=== PATIENT | male | born 1995 | race Caucasian/White ===

== ENCOUNTER 2021-11-02 15:54 | Inpatient (IN) | payer MEDICAID ==
[2021-11-02] MEDS ORDERED: MAGNESIUM HYDROXIDE 2,400 MG/10 ML CUP PO PRN (17:55)
[2021-11-02] MEDS ORDERED: HALOPERIDOL LACTATE 5 MG/ML 1 ML VIAL IM PRN (17:55)
[2021-11-02] MEDS ORDERED: MAG HYDROX/AL HYDROX/SIMETH 30 ML CUP PO PRN (17:55)
[2021-11-02] MEDS ORDERED: LORazepam 2 MG/ML INJ IM PRN (17:57)
[2021-11-02] MEDS: lisinopriL 20 MG TAB PO SCH (20:13)
[2021-11-02] MEDS: NICOTINE 14MG/24HR PATCH TRANSDERM SCH (20:13)
[2021-11-02] MEDS: LORazepam 1 MG TAB PO PRN (20:55)
[2021-11-02] MEDS: haloperidoL 5 MG TAB PO PRN (20:55)
[2021-11-03] MEDS: NICOTINE 14MG/24HR PATCH TRANSDERM SCH (09:07)
[2021-11-03] MEDS: lisinopriL 20 MG TAB PO SCH (09:08)
--- NOTE | 2021-11-03 11:32 | P.HP ---
Psychiatric H&P - . H&P Date: 11/03/21 History & Physical: Allergies Allergy/AdvReac Type Severity Reaction Status Date / Time No Known Allergies Allergy Verified 11/02/21 17:47 Vital Signs Temp 97.3 F L 11/02/21 17:47 Pulse 75 11/02/21 17:47 Resp 20 11/02/21 17:47 BP 144/78 11/02/21 17:47 Pulse Ox Intake & Output 11/02/21 11/03/21 11/03/21 18:59 06:59 18:59 Weight 109.769 kg 11/03/21 11:26 IDENTIFYING DATA: Patient is a 26-year-old male who is currently homeless living in a skilled nursing has wanted, works at a factory. HPI: Patient presented to the hospital as a transfer from [facility]. According to APS report, patient had overdosed on 13 tablets of Zoloft before coming into the hospital. Patient had endorsed a recent trigger for this event being that he found out that his aunt recently. Patient's UDS was negative. Patient was admitted involuntarily on a petition and certificate. Patient was seen today living in his bed and agreeable to speak to television script writer in the office. He appeared to have poor hygiene and grooming. He also appeared to have a depressed affect. He states that he came in the hospital because he overdosed. He states that his intent was to kill himself. He claims that his aunt and him were very close and that she 2 days ago. He states that she succumbed to her cancer. He states that her daughter informed him of this and the overdose shortly after. He states that "I wanted to be gone". He claims that about an after after overdosing he told his girlfriend that he overdosed and regretted it. He claims that his mood is been "fine" and is denying any depression today. Denying any anxiety. He states that his sleep has been fairly poor. He claims that he has been taking the Zoloft and trazodone. Patient denies any current suicidal or homicidal ideations intent or plan. At this time patient denies any auditory or visual hallucinations. Patient denies any flight of ideas racing thoughts and increased in goal directed behavior. Patient admits to using no recreational drugs or cigarettes. PAST PSYCHIATRIC HISTORY: Patient states that she has a history of depression.. Patient was previously on Zoloft and trazodone. He claimed that his last p sychiatric hospitalization was at [place]. He states that he follows up at the clinic in [facility]. He states that he attempted to cut himself in a suicide attempt 8 years ago. PMH: As per medicine H&P ALLERGIES: as per EMR CHEMICAL DEPENDENCY HISTORY: as per HPI FAMILY PSYCHIATRIC/SUBSTANCE USE HISTORY: Claimed that his grandmother committed suicide. SOCIAL HISTORY: Patient was born and raised in [place]. He claims that he completed up to the 10th grade in school. He states that he has no legal history. 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 MENTAL STATUS EXAM: General Appearance: Patient appears to be a tall, overweight, stated age is alert, directable, and attempts to cooperate. Patient appears to have poor hygi lila and grooming. Poor eye contact. Behavior: Patient is seated without any agitated behavior. Constricted. Speech: Patient's speech is fluent and nonpressured. Soft tone Mood/Affect: Patient reports their mood is "okay now", affect is congruent and constricted. Suicidality/Homicidality: Patient denies having any homicidal ideation intent or plan. Denies any suicidal ideations intent or plan Perceptions: Patient denies any visual hallucinations and denies any auditory hallucinations Though content/process: There is no evidence of any delusional thought content and thought process is linear and goal-directed. Memory and concentration: AOX3, grossly intact for the purposes of this session. Can spell "WORLD" backwards Judgment and insight: poor STRENGTHS/WEAKNESSES: strength is that patient is resilient. Weakness is that patient has poor judgment and is impulsive INTELLECT: average IMPRESSIONS: Depressive disorder unspecified, major depressive disorder versus adjustment disorder with depressed mood PLAN: -Patient is admitted under voluntary status to MHU for stabilization of psychiatric symptoms and safety. Patient has signed adult voluntary form and medication consent and is placed in patient's chart. -Medications : Will start patient on Cymbalta 30 mg daily for mood/anxiety, trazodone restarted at 100 mg daily at bedtime for insomnia/mood. -Ativan and haldol PRN for agitation/aggression -Patient was informed of the risks, benefits and side effects of the medication and patient verbally consented to taking the medications. Patient signed med consent form and was placed in chart. -Internal Medicine consult to perform medical evaluation and physical. -NRT - not needed as patient does not smoke -SW on board for discharge planning. Encourage patient to participate in groups to work on coping skills. patient will likely be discharged back to skilled nursing once psychiatrically stable.
[2021-11-03] MEDS: DULoxetine HCL 30 MG CAPSULE.DR PO SCH (11:56)
[2021-11-03] MEDS: haloperidoL 5 MG TAB PO PRN (20:53)
[2021-11-03] MEDS: LORazepam 1 MG TAB PO PRN (20:53)
[2021-11-03] MEDS: traZODone HCL 100 MG TAB PO SCH (22:33)
[2021-11-04] MEDS: lisinopriL 20 MG TAB PO SCH (08:39)
[2021-11-04] MEDS: DULoxetine HCL 30 MG CAPSULE.DR PO SCH (08:39)
[2021-11-04] MEDS: NICOTINE 14MG/24HR PATCH TRANSDERM SCH (08:39)
--- NOTE | 2021-11-04 09:36 | P.PN ---
Progress Note - Text Progress Note Date: 11/04/21 Interval History: Patient was seen sitting in a group this morning and was directable and agreea ble to speak with film writer in the office. Patient claims that he is doing better today. He states that he has improved since yesterday in terms of his mood and anxiety. He claims that he spoke with his girlfriend over the phone and his loan inspector at [facility]. He states that the alf is still willing to take him back once he is discharged. He claims that he is missing work and wants to go back soon as he can. He claims that he is trying to go to as many groups as he can however is fairly vague about what he is learning. He states that he feels a bit more optimistic today. He is denying any side effects from medications. He states that he slept fairly overnight. Has a fair appetite. At this time patient denies any suicidal or homical ideations, intent or plan. Patient denies any auditory, visual hallucinations and denies any paranoia or delusions. Patient denies any side effects from the medications and has been compliant with meds. Mental Status Exam: General Appearance: Patient appears to be a tall, overweight, stated age is alert, directable, and attempts to cooperate. Patient appears to haimprovinghygiene and groomingImproving eye contact. Behavior: Patient is seated without any agitated behavior. Constricted. Speech: Patient's speech is fluent and nonpressured. Soft tone Mood/Affect: Patient reports their mood is "good", affect is congruent and constricted. Suicidality/Homicidality: Patient denies having any homicidal ideation intent or plan. Denies any suicidal ideations intent or plan Perceptions: Patient denies any visual hallucinations and denies any auditory hallucinations Though content/process: There is no evidence of any delusional thought content and thought process is linear and goal-directed. Memory and concentration: AOX3, grossly intact for the purposes of this session Judgment and insight: Improving mildly IMPRESSIONS: Depressive disorder unspecified, major depressive disorder versus adjustment disorder with depressed mood Plan: -Patient continues to meet criteria for inpatient psychiatric admission for symptom stabilization and safety. Patient has signed [adult voluntary form and] [medication consent] and was placed in patient's chart. -Medications: continue with Cymbalta 30 mg daily for mood/anxiety, trazodone 100 mg daily at bedtime for insomnia/mood. -When necessary Ativan and Haldol for agitation/aggression. -NRT - not needed as patient does not smoke -SW on board for discharge planning. Encouraged the patient to participate in milieu. likely discharge tomorrow back to alf. Sw to contact [facility] case operator to help coordinate ride and d/c tomorrow.
[2021-11-04 15:49] LABS: Chol/HDL Ratio 5.76 Ratio; LDL Cholesterol,Calculated 117.7 mg/dL (0.0-131.0)
--- NOTE | 2021-11-04 16:45 | P.HPMEDMHU ---
History of Present Illness Patient is a 26-year-old male with a past medical history significant for essential hypertension, major depression disorder that presents to Hospital secondary to major depression disorder and medication overdose with Zoloft approximately 30 tablets. Patient states that he has overdosed this in the past as well. He denies any active chest pain, shortness of breath or palpitations. Vital signs have been reviewed which have been stable. Limited chemistry reviewed unremarkable, EKG was not completed. I did coronary care with patient's RN that stated that a full workup and clearance was given by previous emergency department where he was admitted and poison control was adequately contacted. At this time he denies any new symptoms. Internal medicine was consulted for medical management. Past Medical History Past Medical History: Hypertension Additional Past Medical History / Comment(s): Psoriasis all over his skin. History of Any Multi-Drug Resistant Organisms: None Reported Past Surgical History: No Surgical Hx Reported Past Anesthesia/Blood Transfusion Reactions: No Reported Reaction Past Psychological History: Anxiety, Depression Smoking Status: Current every day smoker Past Drug Use History: Marijuana, Methamphetamine Additional Drug Use History / Comment(s): Denies using any substances in 4 months. Medications and Allergies Home Medications Medication Instructions Recorded Confirmed Type OXcarbazepine [Trileptal] 300 mg PO BID 11/02/21 11/02/21 History Sertraline HCl [Zoloft] 100 mg PO DAILY 11/02/21 11/02/21 History lisinopriL [Zestril] 20 mg PO DAILY 11/02/21 11/02/21 History traZODone HCL [Desyrel] 100 mg PO HS 11/02/21 11/02/21 History Allergies Allergy/AdvReac Type Severity Reaction Status Date / Time No Known Allergies Allergy Verified 11/02/21 17:47 Physical Exam Vitals: Vital Signs Temp Pulse BP Pulse Ox 11/04/21 08:54 83 132/74 11/04/21 07:09 98.9 F 61 126/67 96 Gen. patient is awake alert oriented 3 Cardiac normal S1/S2 Respiratory no wheezing or rhonchi appreciate Abdomen soft, nontender Extremities no pitting edema Psychiatry patient is in good mood during my examination Cranial Nerve Examination - Cranial Nerves Cranial Nerve I- Olfactory: Intact Cranial Nerve II- Optic: Intact Cranial Nerve III- Oculomotor: Intact Cranial Nerve IV- Trochlear: Intact Cranial Nerve V- Trigeminal: Intact Cranial Nerve - Abducens: Intact Cranial Nerve VII- Facial: Intact Cranial Nerve VIII- Auditory: Intact Cranial Nerve IX- Glossopharyngeal: Intact Cranial Nerve X- Vagus: Intact Cranial Nerve XI- Accessory: Intact Cranial Nerve XII- Hypoglossal: Intact Results Labs: Abnormal Lab Results - Last 24 Hours (Table) 11/02/21 11/04/21 Range/Units 18:14 07:11 HDL Cholesterol 29.50 L (40.00-60.00) mg/dL Oxcarbazepine 2.7 L (10-35) ug/mL Thrombosis Risk Factor Assmnt - Choose All That Apply Any of the Below Risk Factors Present?: No Other Risk Factors: No Other congenital or acquired thrombophilia - If yes, enter type in comment: No Thrombosis Risk Factor Assessment Level: Very Low Risk Assessment and Plan Assessment: Assessment/plan: #1 overdose with Zoloft 13 tablets #2 major depression disorder #3 essential hypertension Plan: -Continue management as per primary team -Continue to take lisinopril -If poison control was contacted and cleared no further recommendations from internal medicine perspective. -We'll obtain CBC/BMP-if any abnormality noticed please contact internal medicine immediately -Repeat EKG -Limited chem reviewed -Please contact us with EKG and repeat blood work. If you have any questions please do not hesitate to contact us at any point
[2021-11-04 17:16] LABS: Basophils # (A) 0.1 k/uL (0-0.2); Basophils % (A) 1 %; Eosinophils # (A) 0.3 k/uL (0-0.7); Eosinophils % (A) 4 %; HCT 52.8 % (39.0-53.0); HGB 16.8 gm/dL (13.0-17.5); Lymphocytes # (A) 1.5 k/uL (1.0-4.8); Lymphocytes % (A) 21 %; MCH 29.7 pg (25.0-35.0); MCHC 31.9 g/dL (31.0-37.0); MCV 93.3 fL (80.0-100.0); Monocytes # (A) 0.6 k/uL (0-1.0); Monocytes % (A) 9 %; Neutrophils # (A) 4.5 k/uL (1.3-7.7); Neutrophils % (A) 63 %; Platelet Count 188 k/uL (150-450); RBC 5.66 m/uL (4.30-5.90); RDW 13.3 % (11.5-15.5); WBC 7.1 k/uL (3.8-10.6)
[2021-11-04] MEDS: LORazepam 1 MG TAB PO PRN (20:40)
[2021-11-04] MEDS: traZODone HCL 100 MG TAB PO SCH (20:40)
[2021-11-04 23:24] LABS: African American GFR (CKD) 101.9 (60.0-200.0); Anion Gap 13.6 mmol/L (10.00-18.00); Blood Urea Nitrogen 21.4 mg/dL (9.0-27.0); Calcium 9.4 mg/dL (8.7-10.3); Carbon Dioxide 24.3 mmol/L (20.0-27.5); Potassium 4.4 mmol/L (3.5-5.5)
[2021-11-05 06:52] VITALS: RESP 16; TEMP 97.3
[2021-11-05] MEDS: NICOTINE 14MG/24HR PATCH TRANSDERM SCH (08:27)
[2021-11-05] MEDS: DULoxetine HCL 30 MG CAPSULE.DR PO SCH (08:27)
[2021-11-05] MEDS: lisinopriL 20 MG TAB PO SCH (08:27)
[2021-11-05 08:30] VITALS: BP 129/75; PULSE 88
--- NOTE | 2021-11-05 09:30 | P.DS ---
Providers Date of admission: 11/02/21 17:40 Expected date of discharge: 11/05/21 Attending physician: Shamar Weller MD Consults: 11/02/21 17:55 Consult Physician Routine Consulting Provider: Flora Lema Consult Reason/Comments: H and P Do you want consulting provider notified?: Yes Primary care physician: Physician Nonstaff - Discharge Diagnosis(es) (1) Depressive disorder Current Visit: Yes Status: Acute Priority: High (2) Nicotine dependence Current Visit: Yes Status: Acute Priority: Low Hospital Course: Admission HPI: Admission note was completed by writer editor "Patient is a 26-year-old male who is currently homeless living in a skilled nursing has wanted, works at a factory. Patient presented to the hospital as a transfer from [facility]. According to APS report, patient had overdosed on 13 tablets of Zoloft before coming into the hospital. Patient had endorsed a recent trigger for this event being that he found out that his aunt recently. Patient's UDS was negative. Patient was admitted involuntarily on a petition and certificate. Patient was seen today living in his bed and agreeable to speak to writer editor in the office. He appeared to have poor hygiene and grooming. He also appeared to have a depressed affect. He states that he came in the hospital because he overdosed. He states that his intent was to kill himself. He claims that his aunt and him were very close and that she 2 days ago. He states that she succumbed to her cancer. He states that her daughter informed him of this and the overdose shortly after. He states that "I wanted to be gone". He claims that about an after after overdosing he told his girlfriend that he overdosed and regretted it. He claims that his mood is been "fine" and is denying any depression today. Denying any anxiety. He states that his sleep has been fairly poor. He claims that he has been taking the Zoloft and trazodone. Patient denies any current suicidal or homicidal ideations intent or plan. At this time patient denies any auditory or visual hallucinations. Patient denies any flight of ideas racing thoughts and increased in goal directed behavior. Patient admits to using no recreational drugs or cigarettes." Hospital course: Upon admission to the unit patient was directable and agreeable to commence treatment and signed adult voluntary form . Patient got along well with other patients on the unit and followed unit protocol. Patient was compliant with the medications and denied any side effects throughout hospital course. Patient was started on Cymbalta 30 mg daily for mood/anxiety, trazodone was restarted at 100 mg daily at bedtime for insomnia/mood. Patient spoke of his stressors and engaged in therapy both group and individual. Patient was also seen by medical team for history and physical exam. Throughout the course of the hospitalization patient gradually improved with regards to mood, anxiety, sleep and became more future oriented with improved insight and judgment. On the day of discharge patient denied any suicidal or homicidal ideations intent or plan denied any auditory or visual hallucinations. Patient endorsed wanting to live for his daughter and his future. The patient denied any access to guns or weapons. Patient denied any paranoia and did not endorse any delusions. Patient does not have a significant history of substance abuse however was counseled on abstaining from all substances including alcohol and marijuana. Patient was also counseled on the medications and need for regular compliance an d was encouraged to follow-up with their outpatient appointment for mental health and also for primary care. Prior to discharge a family meeting will be arranged by perinatal social worker to answer any questions and ensure safety upon discharge. Patient will be discharged back to skilled nursing in [facility]. Mental status exam: General Appearance: Patient appears to be overweight, stated age is alert, ple asant, and cooperative. Patient is in no acute distress and has improved hygiene and grooming Behavior: Patient is calmly seated without any agitated behavior. Speech: Patient's speech is fluent and nonpressured. Mood/Affect: Patient reports their mood is "better", affect is congruent and euthymic. Suicidality/Homicidality: Patient denies having any suicidal or homicidal ideation intent or plan. Perceptions: Patient denies any auditory or visual hallucinations. Though content/process: There is no evidence of any delusional thought content and thought process is linear and goal-directed. more future oriented Memory and concentration: AOX3, grossly intact for the purposes of this session. Can spell "WORLD" backwards correctly. Judgment and insight: improved with guarded prognosis Impression: Depressive disorder unspecified, likely either major depressive disorder versus adjustment disorder with depressed mood Nicotine dependence Plan: -Continue with discharge today as patient has improved and stabilized psychiatrically and is not currently an imminent threat to himself and/or others. -Continue medications: Cymbalta 30 mg daily for mood/anxiety, trazodone 100 mg daily at bedtime for insomnia/mood. -Patient was counseled on the need for medication compliance and appropriate follow-up at mental health and also primary care for medical issues. Patient verbalized understanding and agreed. -Social work to arrange for and conduct family meeting to ensure safety upon discharge and answer any questions/concerns. Social work also to arrange for patients follow up appointments for psychiatric care along with follow up with primary care provider. -Patient counseled on abstaining from recreational drugs and marijuana and alcohol. Was informed/educated on the adverse effects on their physical and mental health. Patient verbally agreed and understood. -Patient was instructed to return to the hospital or seek immediate medical care if their psychiatric or medical symptoms do worsen or reoccur. Allergies Allergy/AdvReac Type Severity Reaction Status Date / Time No Known Allergies Allergy Verified 11/02/21 17:47 Laboratory Results WBC 7.1 k/uL (3.8-10.6) 11/04/21 07:11 RBC 5.66 m/uL (4.30-5.90) 11/04/21 07:11 Hgb 16.8 gm/dL (13.0-17.5) 11/04/21 07:11 Hct 52.8 % (39.0-53.0) 11/04/21 07:11 MCV 93.3 fL (80.0-100.0) 11/04/21 07:11 MCH 29.7 pg (25.0-35.0) 11/04/21 07:11 MCHC 31.9 g/dL (31.0-37.0) 11/04/21 07:11 RDW 13.3 % (11.5-15.5) 11/04/21 07:11 Plt Count 188 k/uL (150-450) 11/04/21 07:11 MPV 10.0 11/04/21 07:11 Neutrophils % 63 % 11/04/21 07:11 Lymphocytes % 21 % 11/04/21 07:11 Monocytes % 9 % 11/04/21 07:11 Eosinophils % 4 % 11/04/21 07:11 Basophils % 1 % 11/04/21 07:11 Neutrophils # 4.5 k/uL (1.3-7.7) 11/04/21 07:11 Lymphocytes # 1.5 k/uL (1.0-4.8) 11/04/21 07:11 Monocytes # 0.6 k/uL (0-1.0) 11/04/21 07:11 Eosinophils # 0.3 k/uL (0-0.7) 11/04/21 07:11 Basophils # 0.1 k/uL (0-0.2) 11/04/21 07:11 Sodium 140 mmol/L (135-145) 11/04/21 07:11 Potassium 4.4 mmol/L (3.5-5.5) 11/04/21 07:11 Chloride 102 mmol/L (96-109) 11/04/21 07:11 Carbon Dioxide 24.3 mmol/L (20.0-27.5) 11/04/21 07:11 Anion Gap 13.60 mmol/L (10.00-18.00) 11/04/21 07:11 BUN 21.4 mg/dL (9.0-27.0) 11/04/21 07:11 Creatinine 1.2 mg/dL (0.6-1.5) 11/04/21 07:11 Est GFR (CKD-EPI)AfAm 101.9 (60.0-200.0) 11/04/21 07:11 Est GFR (CKD-EPI)NonAf 88.0 (60.0-200.0) 11/04/21 07:11 Glucose 86 mg/dL (70-110) 11/04/21 07:[address] Glu mg/dL 113 11/04/21 07:11 Hemoglobin A1c 5.6 % (0.0-6.0) 11/04/21 07:11 Calcium 9.4 mg/dL (8.7-10.3) 11/04/21 07:11 Triglycerides 114.00 mg/dL (0.00-149.00) 11/04/21 07:11 Cholesterol 170.00 mg/dL (0.00-200.00) 11/04/21 07:11 LDL Cholesterol, Calc 117.7 mg/dL (0.0-131.0) 11/04/21 07:11 VLDL Cholesterol, Calc 22.80 mg/dL (5.00-40.00) 11/04/21 07:11 HDL Cholesterol 29.50 mg/dL (40.00-60.00) L 11/04/21 07:11 Cholesterol/HDL Ratio 5.76 Ratio 11/04/21 07:11 Oxcarbazepine 2.7 ug/mL (10-35) L 11/02/21 18:14 Vital Signs Temp 97.3 F L 11/05/21 06:42 Pulse 88 11/05/21 08:29 Resp 16 11/05/21 06:42 BP 129/75 11/05/21 08:29 Pulse Ox 96 11/04/21 07:09 Patient Condition at Discharge: Stable Plan - Discharge Summary Discharge Rx Participant: No New Discharge Prescriptions: New Nicotine 14Mg/24Hr Patch [Habitrol] 1 patch TRANSDERM DAILY 14 Days patch DULoxetine HCL [Cymbalta] 30 mg PO DAILY 30 Days traZODone HCL [Desyrel] 100 mg PO HS 30 Days tab Continue lisinopriL [Zestril] 20 mg PO DAILY Discontinued Sertraline HCl [Zoloft] 100 mg PO DAILY OXcarbazepine [Trileptal] 300 mg PO BID traZODone HCL [Desyrel] 100 mg PO HS Discharge Medication List lisinopriL [Zestril] 20 mg PO DAILY 11/02/21 [History] DULoxetine HCL [Cymbalta] 30 mg PO DAILY 30 Days 11/05/21 [Rx] Nicotine 14Mg/24Hr Patch [Habitrol] 1 patch TRANSDERM DAILY 14 Days patch 11/05/21 [Rx] traZODone HCL [Desyrel] 100 mg PO HS 30 Days tab 11/05/21 [Rx] Activity/Diet/Wound Care/Special Instructions: Activity and diet as tolerated. Avoid the use of street drugs and alcohol. Take all medications as prescribed. When you are in need of refills on your medications please contact your medical provider and/or outpatient psychiatrist to have this done. Please go to scheduled outpatient appointment for aftercare treatment. If symptoms return or become worse, call the crisis line at and/or go to the nearest emergency room for evaluation Discharge Disposition: OTHER INSTITUTION NOT DEFINED
== END 2021-11-05 13:30 | disposition home or self-care (01) | DRG 881 ==
LOC: 3MHU 17:40
PROVIDERS: ADMIT Psychiatry & Neurology Psychiatry; ATTEND Psychiatry & Neurology Psychiatry
DX: F32.A Depression, unspecified (principal); F17.210 Nicotine dependence, cigarettes, uncomplicated; F41.9 Anxiety disorder, unspecified; G47.00 Insomnia, unspecified; T43.222D Poisoning by selective serotonin reuptake inhibitors, intentional self-harm, subsequent encounter; I10 Essential (primary) hypertension; Z59.01 Sheltered homelessness; Z79.899 Other long term (current) drug therapy; Z91.51 Personal history of suicidal behavior; E66.3 Overweight; Z68.31 Body mass index [BMI] 31.0-31.9, adult; Z63.4 Disappearance and death of family member; Z28.310 Unvaccinated for COVID-19; Z71.89 Other specified counseling
CPT/HCPCS: 80048; 80061; 80183; 83036; 85025

== ENCOUNTER 2023-01-14 21:36 | Inpatient (IN) | payer MEDICAID, OTHER ==
--- NOTE | 2023-01-14 22:29 | ED ---
Psych HPI - General Chief Complaint: Psychiatric Symptoms Stated Complaint: Mental Health Time Seen by Provider: 01/14/23 21:38 Source: patient, RN notes reviewed, old records reviewed Mode of arrival: EMS - History of Present Illness Initial Comments: This is a 27 show male to the emergency department for evaluation of psychiatric illness. Patient is coming in for suicidal thoughts, other than saying is suicidal he does not participate history of present illness denies drugs or alcohol MD Complaint: suicidal ideation, feels depressed -: hour(s) Associated Psychiatric Symptoms: depression, suicidal ideation History of same: Yes Quality: constant Improves With: none Worsens With: none Context: not taking psychiatric medications, significant life stressor Associated Symptoms: denies other symptoms Treatments Prior to Arrival: placed on mental health hold If Self Harm: admits thoughts of self harm - Related Data Previous Rx's Medication Instructions Recorded DULoxetine HCL [Cymbalta] 90 mg PO HS 30 Days #90 cap 01/20/23 Ibuprofen [Motrin] 600 mg PO Q6HR PRN tab 01/20/23 Nicotine 14Mg/24Hr Patch [Habitrol] 1 patch TRANSDERM DAILY 14 Days 01/20/23 #14 patch Nicotine Gum (Polacrilex) 2 mg BUCCAL Q4HR PRN 30 Days #180 01/20/23 [Nicorette] pieceofgum QUEtiapine [SEROquel] 100 mg PO HS 30 Days #30 tab 01/20/23 Sennosides-Docusate Sodium 1 each PO DAILY 30 Days #30 tab 01/20/23 [Senokot-S] Allergies Allergy/AdvReac Type Severity Reaction Status Date / Time No Known Allergies Allergy Verified 01/14/23 22:22 Review of Systems ROS Statement: Those systems with pertinent positive or pertinent negative responses have been documented in the HPI. ROS Other: All systems not noted in ROS Statement are negative. Past Medical History Past Medical History: Hypertension Additional Past Medical History / Comment(s): Psoriasis all over his skin. History of Any Multi-Drug Resistant Organisms: None Reported Past Surgical History: No Surgical Hx Reported Past Anesthesia/Blood Transfusion Reactions: No Reported Reaction Past Psychological History: Anxiety, Depression Smoking Status: Current every day smoker Past Drug Use History: Marijuana, Methamphetamine General Exam General appearance: alert, in no apparent distress Head exam: Present: atraumatic, normocephalic, normal inspection Eye exam: Present: normal appearance, PERRL, EOMI. Absent: scleral icterus, conjunctival injection, periorbital swelling ENT exam: Present: normal exam, mucous membranes moist Neck exam: Present: normal inspection. Absent: tenderness, meningismus, lymphadenopathy Respiratory exam: Present: normal lung sounds bilaterally. Absent: respiratory distress, wheezes, rales, rhonchi, stridor Cardiovascular Exam: Present: regular rate, normal rhythm, normal heart sounds. Absent: systolic murmur, diastolic murmur, rubs, gallop, clicks GI/Abdominal exam: Present: soft, normal bowel sounds. Absent: distended, tenderness, guarding, rebound, rigid Extremities exam: Present: normal inspection, full ROM, normal capillary refill. Absent: tenderness, pedal edema, joint swelling, calf tenderness Back exam: Present: normal inspection Neurological exam: Present: alert, oriented X3, CN II-XII intact Psychiatric exam: Present: normal affect, normal mood Skin exam: Present: warm, dry, intact, normal color. Absent: rash Course Vital Signs 01/14/23 01/15/23 21:39 03:19 Temperature 98.7 F Respiratory 18 16 Rate - Reevaluation(s) Reevaluation #1: 01/15/23 00:52 Medical records reviewed Reevaluation #2: 01/15/23 00:52 Medical clear for psychiatric evaluation Medical Decision Making - Medical Decision Making 27 male to the emergency department for evaluation of psychiatric illness. Patient is seen and evaluated by psychiatry here in the ER will be admitted for treatment - Lab Data Result diagrams: 01/16/23 06:49 01/16/23 06:49 Lab Results 01/14/23 01/15/23 01/15/23 Range/Units 21:45 02:46 02:46 Urine Color Light Yellow Urine Appearance Clear (Clear) Urine pH 7.0 (5.0-8.0) Ur Specific [place] 1.010 (1.001-1.035) Urine Protein Negative (Negative) Urine Glucose (UA) Negative (Negative) Urine Ketones Negative (Negative) Urine Blood Negative (Negative) Urine Nitrite Negative (Negative) Urine Bilirubin Negative (Negative) Urine Urobilinogen <2.0 (<2.0) mg/dL Ur Leukocyte Esterase Negative (Negative) Urine Opiates Screen Not Detected (NotDetected) Ur Oxycodone Screen Not Detected (NotDetected) Urine Methadone Screen Not Detected (NotDetected) Ur Propoxyphene Screen Not Detected (NotDetected) Ur Barbiturates Screen Not Detected (NotDetected) U Tricyclic Antidepress Not Detected (NotDetected) Ur Phencyclidine Scrn Not Detected (NotDetected) Ur Amphetamines Screen Not Detected (NotDetected) U Methamphetamines Scrn Not Detected (NotDetected) U Benzodiazepines Scrn Not Detected (NotDetected) Urine Cocaine Screen Not Detected (NotDetected) U Marijuana (THC) Screen Not Detected (NotDetected) Influenza Type A (PCR) Not Detected (Not Detectd) Influenza Type B (PCR) Not Detected (Not Detectd) RSV (PCR) Not Detected (Not Detectd) SARS-CoV-2 (PCR) Not Detected (Not Detectd) Disposition Clinical Impression: Adjustment reaction of adult life, Depressive disorder, Major depressive disorder without psychotic features, Methamphetamine use disorder, severe, dependence, Homelessness Disposition: TRANSFER TO PSYCH HOSP/UNIT Condition: Fair Is patient prescribed a controlled substance at d/c from ED?: No
[2023-01-15] MEDS ORDERED: traZODone HCL 50 MG TAB PO PRN (02:28)
[2023-01-15] MEDS ORDERED: LORazepam 1 MG TAB PO PRN (02:28)
[2023-01-15] MEDS ORDERED: haloperidoL 5 MG TAB PO PRN (02:28)
[2023-01-15] MEDS ORDERED: IBUPROFEN 600 MG TAB PO PRN (02:28)
[2023-01-15] MEDS ORDERED: MAG HYDROX/AL HYDROX/SIMETH 30 ML CUP PO PRN (02:28)
[2023-01-15] MEDS ORDERED: LORazepam 2 MG/ML INJ IM PRN (02:28)
[2023-01-15] MEDS ORDERED: OLANZapine 10 MG VIAL IM PRN (02:28)
[2023-01-15] MEDS ORDERED: ACETAMINOPHEN TAB 325 MG TAB PO PRN (02:28)
[2023-01-15 03:14] LABS: Appearance,Urine Clear (Clear); Bilirubin,Urine Negative (Negative); Blood,Urine Negative (Negative); Color,Urine Light Yellow; Glucose,Urine (UA) Negative (Negative); Ketones,Urine Negative (Negative); Leukocyte Esterase,Urine Negative (Negative); Nitrite,Urine Negative (Negative); Protein,Urine Negative (Negative); Urobilinogen,Urine <2.0 mg/dL (<2.0)
[2023-01-15 03:30] LABS: Amphetamine Screen,Urine Not Detected (NotDetected); Barbiturate Screen,Urine Not Detected (NotDetected); Benzodiazepines Screen,Urine Not Detected (NotDetected); Cocaine Screen,Urine Not Detected (NotDetected); Methadone Screen, Urine Not Detected (NotDetected); Opiate Screen,Urine Not Detected (NotDetected); Oxycodone Screen, Urine Not Detected (NotDetected); Phencyclidine Screen,Urine Not Detected (NotDetected); Tricyclic Antidepressant,Urine Not Detected (NotDetected); Urn Cannabinoid Scrn Not Detected (NotDetected)
[2023-01-15] MEDS ORDERED: NICOTINE GUM (POLACRILEX) 2 MG GUM BUCCAL PRN (11:40)
--- NOTE | 2023-01-15 11:40 | P.HP ---
Psychiatric H&P - . H&P Date: 01/15/23 History & Physical: Allergies Allergy/AdvReac Type Severity Reaction Status Date / Time No Known Allergies Allergy Verified 01/14/23 22:22 Vital Signs Temp 97.0 F L 01/15/23 04:34 Pulse 70 01/15/23 04:34 Resp 18 01/15/23 04:34 BP 140/83 01/15/23 04:34 Pulse Ox 97 01/15/23 04:34 FiO2 Intake & Output 01/14/23 01/15/23 01/15/23 18:59 06:59 18:59 Weight 93.2 kg Laboratory Last Values Urine Color Light Yellow 01/15/23 02:46 Urine Appearance Clear (Clear) 01/15/23 02:46 Urine pH 7.0 (5.0-8.0) 01/15/23 02:46 Ur Specific Umpire 1.010 (1.001-1.035) 01/15/23 02:46 Urine Protein Negative (Negative) 01/15/23 02:46 Urine Glucose (UA) Negative (Negative) 01/15/23 02:46 Urine Ketones Negative (Negative) 01/15/23 02:46 Urine Blood Negative (Negative) 01/15/23 02:46 Urine Nitrite Negative (Negative) 01/15/23 02:46 Urine Bilirubin Negative (Negative) 01/15/23 02:46 Urine Urobilinogen <2.0 mg/dL (<2.0) 01/15/23 02:46 Ur Leukocyte Esterase Negative (Negative) 01/15/23 02:46 Urine Opiates Screen Not Detected (NotDetected) 01/15/23 02:46 Ur Oxycodone Screen Not Detected (NotDetected) 01/15/23 02:46 Urine Methadone Screen Not Detected (NotDetected) 01/15/23 02:46 Ur Propoxyphene Screen Not Detected (NotDetected) 01/15/23 02:46 Ur Barbiturates Screen Not Detected (NotDetected) 01/15/23 02:46 U Tricyclic Antidepress Not Detected (NotDetected) 01/15/23 02:46 Ur Phencyclidine Scrn Not Detected (NotDetected) 01/15/23 02:46 Ur Amphetamines Screen Not Detected (NotDetected) 01/15/23 02:46 U Methamphetamines Scrn Not Detected (NotDetected) 01/15/23 02:46 U Benzodiazepines Scrn Not Detected (NotDetected) 01/15/23 02:46 Urine Cocaine Screen Not Detected (NotDetected) 01/15/23 02:46 U Marijuana (THC) Screen Not Detected (NotDetected) 01/15/23 02:46 Influenza Type A (PCR) Not Detected (Not Detectd) 01/14/23 21:45 Influenza Type B (PCR) Not Detected (Not Detectd) 01/14/23 21:45 RSV (PCR) Not Detected (Not Detectd) 01/14/23 21:45 SARS-CoV-2 (PCR) Not Detected (Not Detectd) 01/14/23 21:45 01/15/23 10:29 IDENTIFYING DATA: Patient is a 27-year-old male who is currently homeless living, was just in rehab for 1 day, unemployed, and has 1 kid. HPI: Patient presented to the hospital on 01/14 and seen in the ER for suicidal ideations and depression. Patient was a poor historian, claims that he has not been taking medications. Patient was coming from [facility] and was there for 1 day. Patient has a history of homelessness. He apparently had a urine drug scan which is negative, urinalysis is negative. Patient was admitted voluntarily the mental health unit. He was seen today by keno writer and agreeable to speak. He had very poor eye contact, disheveled appearance. He states that he has been feeling depressed and suicidal lately, with a plan to hang himself. States that this has been on and off and increasing in the past 2 months. States that since he has been taken off his medications about 2 months ago he states that his mood is "up and down" and states that he does have anxiety. States that he was taken off his medications by the other psychiatric unit in [facility]. He states that he was there about 2 months ago. He claims that he was only on Seroquel at that time. Claims of the cervical was helping. He claims that he used to use methamphetamine however has been sober since the children January 04. Claims that he still having suicidal thoughts, no intent or plan at this time. Patient denies any homicidal ideations intent or plan. At this time patient denies any auditory or visual hallucinations. Patient denies any flight of ideas racing thoughts and increased in goal directed behavior. Juan machuca states that he used to use methamphetamine however stopped using on 01/04. He claims that he does not drink alcohol, smoke cigarettes regularly. PAST PSYCHIATRIC HISTORY: Patient states that she has a history of depression and polysubstance abuse including methamphetamine. Patient was previously on Zoloft and trazodone, then Kenny and Seroquel. He claimed that his last psychiatric hospitalization was in [facility] is about 2 months ago. Patient was last admitted to the mental health unit on 10/2021. He states that he follows up at the clinic in [facility]. He states that he attempted to cut himself in a suicide attempt 8 years ago and has had several other suicide attempts. PMH: As per medicine H&P ALLERGIES: as per EMR CHEMICAL DEPENDENCY HISTORY: as per HPI FAMILY PSYCHIATRIC/SUBSTANCE USE HISTORY: Claimed that his grandmother committed suicide. SOCIAL HISTORY: Patient was born and raised in [facility]. He claims that he completed up to the 10th grade in school. He states that he has no legal history. He has 1 kid, currently unemployed and lives in a intermediate amnd was previously at rehab. MENTAL STATUS EXAM: General Appearance: Patient appears to be a tall, overweight, stated age is alert, directable, and attempts to cooperate. Patient appears to have poor hygiene and grooming. Poor eye contact. Behavior: Patient is seated without any agitated behavior. Constricted. Speech: Patient's speech is fluent and nonpressured. Soft tone. monotone Mood/Affect: Patient reports their mood is "depressed", affect is congruent and constricted. Suicidality/Homicidality: Patient denies having any homicidal ideation intent or plan. Denies any suicidal ideations intent or plan Perceptions: Patient denies any visual hallucinations and denies any auditory hallucinations Though content/process: There is no evidence of any delusional thought content and thought process is linear and goal-directed. concrete. Memory and concentration: AOX3, grossly intact for the purposes of this session. Can spell "WORLD" backwards Judgment and insight: poor STRENGTHS/WEAKNESSES: strength is that patient is resilient. Weakness is that patient has poor judgment and is impulsive, substance abuse hx INTELLECT: average IMPRESSIONS: Major depressive disorder without psychotic features methamphetamine use disorder severe nicotine dependence homelessness PLAN: -Patient is admitted under voluntary status to MHU for stabilization of psychiatric symptoms and safety. Patient has signed adult voluntary form and medication consent and is placed in patient's chart. -Medications : Will start patient on Cymbalta 30 mg daily for mood/anxiety, seroquel 50 mg qhs for bedtime for insomnia/mood adjunct. -Ativan and haldol PRN for agitation/aggression -Patient was informed of the risks, benefits and side effects of the medication and patient verbally consented to taking the medications. Patient signed med consent form and was placed in chart. -Internal Medicine consult to perform medical evaluation and physical. -NRT - nicotine gum -SW on board for discharge planning. Encourage patient to participate in groups to work on coping skills. patient will likely be discharged back to intermediate vs rehab. 01/15/23 11:34 01/15/23 11:40
[2023-01-15] MEDS: DULoxetine HCL 30 MG CAPSULE.DR PO SCH (12:11)
[2023-01-15] MEDS: MAGNESIUM HYDROXIDE 2,400 MG/30 ML CUP PO PRN (12:12)
[2023-01-15] MEDS: QUEtiapine 50 MG TAB PO SCH (20:55)
--- NOTE | 2023-01-16 04:17 | P.MDCNMH ---
History of Present Illness H&P Date: 01/15/23 Chief Complaint: suicidal ideation 27 year old male with no significant past medical history , coming in for depressed mood and suicidal ideation, requesting evaluation . he denies any fever, chills, cough, sore throat, chest pain , trouble breathing , nausea , vomiting, abd pain , changes in urinary or bowel habits. he admits to tobacco smoking, and using Meth Pertinent positives as noted in HPI. All other systems were reviewed and are negative Constitutional: No acute distress, conversant, pleasant Eyes: Anicteric sclerae, moist conjunctiva, Pupils equal round reactive to light ENMT: NC/AT Oropharynx clear, no erythema, or exudates Neck: Supple, no masses, or JVD No carotid bruits No thyromegaly Lungs: Clear to auscultation Clear to percussion Normal respiratory effort, no accessory muscle use Cardiovascular: Heart regular in rate and rhythm, No murmurs, gallops, or rubs No peripheral edema Abdominal: Soft Nontender, no guarding, rebound or rigidity Abdomen moving with respiration Normoactive bowel sounds No hepatomegaly, No splenomegaly No palpable mass No abdominal wall hernia noted Skin: Normal temperature, tone, texture, turgor Extremities: No digital cyanosis No clubbing Pedal pulses intact and symmetrical Radial pulses intact and symmetrical No calf tenderness Psychiatric: Alert and oriented to person, place and time Neuro Muscles Strength 5/5 in all 4 extremities Sensation to light touch grossly present throughout Cranial nerves II-XII grossly intact Lymphatics: no palpable cervical or supraclavicular lymph nodes Past Medical History Past Medical History: Hypertension Additional Past Medical History / Comment(s): Psoriasis all over his skin. History of Any Multi-Drug Resistant Organisms: None Reported Past Surgical History: No Surgical Hx Reported Past Anesthesia/Blood Transfusion Reactions: No Reported Reaction Past Psychological History: Anxiety, Depression Smoking Status: Current every day smoker Past Drug Use History: Marijuana, Methamphetamine Additional Drug Use History / Comment(s): Denies using any substances in 4 months. Medications and Allergies Home Medications Medication Instructions Recorded Confirmed Type No Known Home Medications 01/14/23 01/14/23 History Allergies Allergy/AdvReac Type Severity Reaction Status Date / Time No Known Allergies Allergy Verified 01/14/23 22:22 Physical Exam Vitals: Vital Signs Temp Pulse Pulse Resp BP Pulse Ox 01/15/23 04:34 97.0 F L 70 18 140/83 97 01/15/23 04:33 72 16 97 Cranial Nerve Examination - Cranial Nerves Cranial Nerve II- Optic: Intact Cranial Nerve III- Oculomotor: Intact Cranial Nerve IV- Trochlear: Intact Cranial Nerve V- Trigeminal: Intact Cranial Nerve - Abducens: Intact Cranial Nerve VII- Facial: Intact Cranial Nerve VIII- Auditory: Intact Cranial Nerve IX- Glossopharyngeal: Intact Cranial Nerve X- Vagus: Intact Cranial Nerve XI- Accessory: Intact Cranial Nerve XII- Hypoglossal: Intact Assessment and Plan Assessment: depression and suicidal ideation management per psych polysubstance abuse, counseled to quit smoking and using meth labs not available at this time stable from medical stand point thank you for this consultation
[2023-01-16 07:45] LABS: Basophils % (A) 1 %; Eosinophils # (A) 0.2 k/uL (0-0.7); Eosinophils % (A) 4 %; HCT 46.8 % (39.0-53.0); HGB 15.1 gm/dL (13.0-17.5); Lymphocytes # (A) 1.4 k/uL (1.0-4.8); Lymphocytes % (A) 26 %; MCH 29.2 pg (25.0-35.0); MCHC 32.2 g/dL (31.0-37.0); MCV 90.5 fL (80.0-100.0); Mean Platelet Volume 8.4; Monocytes # (A) 0.4 k/uL (0-1.0); Monocytes % (A) 7 %; Neutrophils # (A) 3.2 k/uL (1.3-7.7); Neutrophils % (A) 60 %; Platelet Count 198 k/uL (150-450); RBC 5.17 m/uL (4.30-5.90); RDW 13.4 % (11.5-15.5); WBC 5.3 k/uL (3.8-10.6)
[2023-01-16 07:46] LABS: ALT 19 U/L (4-49); AST 20 U/L (17-59); African American GFR (CKD) >90 (>60 ml/min/1.73 sqM); Albumin 3.9 g/dL (3.5-5.0); Alkaline Phosphatase 45 U/L (38-126); Anion Gap 6 mmol/L; Blood Urea Nitrogen 16 mg/dL (9-20); Calcium 8.8 mg/dL (8.4-10.2); Carbon Dioxide 29 mmol/L (22-30); Chloride 105 mmol/L (98-107); Glucose 86 mg/dL (74-99); Non-African American GFR(CKD) >90 (>60 ml/min/1.73 sqM); Potassium 4.3 mmol/L (3.5-5.1); Sodium 140 mmol/L (137-145); Total Bilirubin 1.2 mg/dL (0.2-1.3); Total Protein 6.5 g/dL (6.3-8.2)
[2023-01-16] MEDS: DULoxetine HCL 30 MG CAPSULE.DR PO SCH (08:54)
--- NOTE | 2023-01-16 11:44 | P.PN ---
Subjective Progress Note Date: 01/16/23 Principal diagnosis: IMPRESSIONS: Major depressive disorder without psychotic features methamphetamine use disorder severe nicotine dependence homelessness Subjective data: The patient was seen for the first time Patient reports that he was feeling suicidal and that he was feeling very overwhelmed He states that he also had stopped taking his medications that included Cymbalta Trileptal for about 2 months He states that he currently lives alone but is also homeless He states that he has a substance use problem and that he was using lots of methamphetamine He states that he used to work as a [employer] as well as used to cook He says that he started to feel somewhat better He currently denies any suicidal ideations or plans Objective data: MENTAL STATUS EXAM: General Appearance: Patient appears to be a tall, overweight, stated age is alert, directable, and attempts to cooperate. Patient appears to have poor hygiene and grooming. Poor eye contact. Behavior: Patient is seated without any agitated behavior. Constricted. Speech: Patient's speech is fluent and nonpressured. Soft tone. monotone Mood/Affect: Patient reports their mood is "depressed", affect is congruent and constricted. Suicidality/Homicidality: Patient denies having any homicidal ideation intent or plan. Denies any suicidal ideations intent or plan Perceptions: Patient denies any visual hallucinations and denies any auditory hallucinations Though content/process: There is no evidence of any delusional thought content and thought process is linear and goal-directed. concrete. Memory and concentration: AOX3, grossly intact for the purposes of this session. Can spell "WORLD" backwards Judgment and insight: poor STRENGTHS/WEAKNESSES: strength is that patient is resilient. Weakness is that patient has poor judgment and is impulsive, substance abuse hx IMPRESSIONS: Major depressive disorder without psychotic features methamphetamine use disorder severe nicotine dependence homelessness PLAN: -Patient is admitted under voluntary status to MHU for stabilization of psychi atric symptoms and safety. Patient has signed adult voluntary form and medication consent and is placed in patient's chart. -Medications : Cymbalta 30 mg daily for mood/anxiety, seroquel 50 mg qhs for bedtime for insomnia/mood adjunct. -Ativan and haldol PRN for agitation/aggression -Patient was informed of the risks, benefits and side effects of the medication and patient verbally consented to taking the medications. Patient signed med consent form and was placed in chart. -Internal Medicine consult to perform medical evaluation and physical. -NRT - nicotine gum -SW on board for discharge planning. Encourage patient to participate in groups to work on coping skills. patient will likely be discharged back to long-term vs rehab. Satish Aceves M.D. 01/16/2023 Objective - Vital Signs Vital signs: Vital Signs Temp 97.8 F 01/16/23 06:48 Pulse 61 01/16/23 06:48 Resp 16 01/16/23 06:48 BP 131/60 01/16/23 06:48 Pulse Ox 99 01/16/23 06:48 FiO2 - Labs CBC & Chem 7: 01/16/23 06:49 01/16/23 06:49
[2023-01-16 13:37] LABS: Chol/HDL Ratio 5.46 Ratio
[2023-01-16] MEDS: QUEtiapine 50 MG TAB PO SCH (20:11)
[2023-01-17] MEDS: DULoxetine HCL 30 MG CAPSULE.DR PO SCH (09:03)
--- NOTE | 2023-01-17 09:56 | P.PN ---
Subjective Progress Note Date: 01/17/23 Principal diagnosis: IMPRESSIONS: Major depressive disorder without psychotic features methamphetamine use disorder severe nicotine dependence homelessness Subjective data: The patient reports that he started to slightly feel better He states that he slept better last night He says that his psoriasis sometimes bothers him but is being present for a long time He states that he sometimes worries about his future and is hopeful that he can do something about working for that in the future He currently denies that he is having any suicidal thoughts or plans Objective data: MENTAL STATUS EXAM: General Appearance: Patient appears to be a stated age is alert, directable, an d attempts to cooperate. Patient appears to have poor hygiene and grooming. Poor eye contact. Behavior: Patient is seated without any agitated behavior. Constricted. Speech: Patient's speech is fluent and nonpressured. Soft tone. monotone Mood/Affect: Patient reports their mood is "depressed", affect is congruent and constricted. Suicidality/Homicidality: Patient denies having any homicidal ideation intent or plan. Denies any suicidal ideations intent or plan Perceptions: Patient denies any visual hallucinations and denies any auditory hallucinations Though content/process: There is no evidence of any delusional thought content and thought process is linear and goal-directed. concrete. Memory and concentration: AOX3, grossly intact for the purposes of this session. Can spell "WORLD" backwards Judgment and insight: Improving slightly STRENGTHS/WEAKNESSES: strength is that patient is resilient. Weakness is that patient has poor judgment and is impulsive, substance abuse hx IMPRESSIONS: Major depressive disorder without psychotic features methamphetamine use disorder severe nicotine dependence homelessness PLAN: -Patient is admitted under voluntary status to MHU for stabilization of psychiatric symptoms and safety. Patient has signed adult voluntary form and medication consent and is placed in patient's chart. -Medications : Cymbalta 30 mg daily for mood/anxiety, Patient remains compliant with his medications and is motivated for change seroquel 50 mg qhs for bedtime for insomnia/mood adjunct. -Ativan and haldol PRN for agitation/aggression -Patient was informed of the risks, benefits and side effects of the medication and patient verbally consented to taking the medications. Patient signed med consent form and was placed in chart. -Internal Medicine consult to perform medical evaluation and physical. -NRT - nicotine gum -SW on board for discharge planning. Encourage patient to participate in groups to work on coping skills. patient will likely be discharged back to senior care vs rehab. Satish Aceves M.D. 01/17/2023 Objective - Vital Signs Vital signs: Vital Signs Temp 97.3 F L 01/17/23 06:46 Pulse 72 01/17/23 06:46 Resp 14 01/17/23 06:46 BP 112/74 01/17/23 06:46 Pulse Ox 99 01/16/23 06:48 FiO2 Intake & Output 01/16/23 01/17/23 01/17/23 18:59 06:59 18:59 Weight 93.8 kg - Labs CBC & Chem 7: 01/16/23 06:49 01/16/23 06:49 Labs: Abnormal Lab Results - Last 24 Hours (Table) 01/16/23 Range/Units 06:49 HDL Cholesterol 32.80 L (40.00-60.00) mg/dL
[2023-01-17] MEDS: QUEtiapine 50 MG TAB PO SCH (21:28)
[2023-01-17] MEDS: MAGNESIUM HYDROXIDE 2,400 MG/30 ML CUP PO PRN (21:30)
--- NOTE | 2023-01-18 09:12 | P.PN ---
Progress Note - Text Progress Note Date: 01/18/23 Subjective data: Patient was seen wandering the hallways today after eating breakfast. He was ag reeable to speak to global technical writer in the office today. He appeared to have mild improvement in his hygiene today and mild improvement in his affect as well. He states that he is doing a bit better however continues to state that his feeling depressed and anxious. We spoke about increasing his Cymbalta which she is okay with. He claims that the withdrawal symptoms have been improving significantly. He claims that he still unsure of whether to go back to rehab or not however does state that "is probably the best thing I can do". He claims that he is trying to go to some groups, was fairly vague in what he is learning. Continues to have depressive thoughts during the day, suicidal thoughts have been improving, no intent or plan. Claims have been improving appetite. States that he does not have any homicidal ideations intent or plan. Denies any auditory or visual hallucinations. He has been taking his medications as prescribed. Objective data: MENTAL STATUS EXAM: General Appearance: Patient appears to be a stated age is alert, directable, and attempts to cooperate. Improving moderately. Patient appears to have mildly improving hygiene and grooming. Improving eye contact. Behavior: Patient is seated without any agitated behavior. Constricted, improving mildly Speech: Patient's speech is fluent and nonpressured. monotone Mood/Affect: Patient reports their mood is "still depressed", affect is congruent Suicidality/Homicidality: Patient denies having any homicidal ideation intent or plan. Denies any suicidal ideations intent or plan Perceptions: Patient denies any visual hallucinations and denies any auditory hallucinations Though content/process: There is no evidence of any delusional thought content and thought process is linear and goal-directed. concrete Memory and concentration: AOX3, grossly intact for the purposes of this session. Can spell "WORLD" backwards Judgment and insight: Improving slightly IMPRESSIONS: Major depressive disorder without psychotic features methamphetamine use disorder severe nicotine dependence homelessness PLAN: -Patient is admitted under voluntary status to [facility]HU for stabilization of psychiatric symptoms and safety. Patient has signed adult voluntary form and medication consent and is placed in patient's chart. -Medications : increase Cymbalta 60 mg daily for mood/anxiety, increase seroquel 100 mg qhs for bedtime for insomnia/mood adjunct. -Ativan and haldol PRN for agitation/aggression -NRT - nicotine gum -SW on board for discharge planning. Encourage patient to participate in groups to work on coping skills. patient will likely be discharged back to rehab. likely discharge in 1-2 days
[2023-01-18] MEDS: DULoxetine HCL 60 MG CAPSULE.DR PO SCH (09:49)
[2023-01-18] MEDS: SENNOSIDES-DOCUSATE SODIUM 1 EACH TAB PO SCH ×2 (09:50→20:35)
[2023-01-18 09:52] VITALS: RESP 16
[2023-01-18] MEDS: NICOTINE 14MG/24HR PATCH TRANSDERM SCH (11:34)
[2023-01-18] MEDS: QUEtiapine 100 MG TAB PO SCH (20:35)
[2023-01-19 06:48] VITALS: BP 117/66; PULSE 58; TEMP 97.1
[2023-01-19] MEDS: SENNOSIDES-DOCUSATE SODIUM 1 EACH TAB PO SCH ×2 (08:59→21:19)
[2023-01-19] MEDS: NICOTINE 14MG/24HR PATCH TRANSDERM SCH (08:59)
[2023-01-19] MEDS: DULoxetine HCL 60 MG CAPSULE.DR PO SCH (08:59)
--- NOTE | 2023-01-19 11:11 | P.PN ---
Progress Note - Text Progress Note Date: 01/19/23 Subjective data: Patient was seen wandering the hallways today, then went to go lay down after t aking his medications. He states that he was feeling somewhat tired this morning. Claims that he is still feeling somewhat depressed and anxious. Claims that the medications have been helping. We spoke about changing his Cymbalta to nighttime dosing which she was okay with. Continues to be fairly indecisive about rehab and claims that he did not hear anything yet about a intake state when he can go back to [place]. He claims that the withdrawal symptoms have been improving significantly. Claims of an improving appetite. He claims that he is trying to go to some groups, was fairly vague in what he is learning. He is denying any suicidal thoughts, no intent or plan. States that he does not have any homicidal ideations intent or plan. Denies any auditory or visual hallucinations. He has been taking his medications as prescribed. Objective data: MENTAL STATUS EXAM: General Appearance: Patient appears to be a stated age is alert, directable, and attempts to cooperate. Improving moderately. Patient appears to have mildly improving hygiene and grooming. Improving eye contact. Behavior: Patient is seated without any agitated behavior. Constricted, improving mildly Speech: Patient's speech is fluent and nonpressured. monotone Mood/Affect: Patient reports their mood is "still depressed", affect is congruent mildly improving. Suicidality/Homicidality: Patient denies having any homicidal ideation intent or plan. Denies any suicidal ideations intent or plan Perceptions: Patient denies any visual hallucinations and denies any auditory hallucinations Though content/process: There is no evidence of any delusional thought content and thought process is linear and goal-directed. concrete Memory and concentration: AOX3, grossly intact for the purposes of this session. 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 Patient has signed adult voluntary form and medication consent and is placed in patient's chart. -Medications : change Cymbalta 90 mg QHS for mood/anxiety, seroquel 100 mg qhs for bedtime for insomnia/mood adjunct. -Ativan and haldol PRN for agitation/aggression -NRT - nicotine gum -SW on board for discharge planning. Encourage patient to participate in groups to work on coping skills. patient will likely be discharged back to rehab. likely discharge in 1-2 days, still waiting on intake date at .
[2023-01-19] MEDS ORDERED: DULoxetine HCL 30 MG CAPSULE.DR PO ONE (21:00)
[2023-01-19] MEDS: QUEtiapine 100 MG TAB PO SCH (21:19)
[2023-01-20] MEDS: SENNOSIDES-DOCUSATE SODIUM 1 EACH TAB PO SCH (08:56)
[2023-01-20] MEDS: NICOTINE 14MG/24HR PATCH TRANSDERM SCH (08:56)
--- NOTE | 2023-01-20 11:43 | P.DS ---
Providers Date of admission: 01/15/23 04:24 Expected date of discharge: 01/20/23 Attending physician: Shamar Weller MD Consults: 01/15/23 02:28 Consult Physician Routine Consulting Provider: [facility] Consult Reason/Comments: h and p Do you want consulting provider notified?: Yes, Notify in am Primary care physician: Physician Nonstaff - Discharge Diagnosis(es) (1) Major depressive disorder without psychotic features Current Visit: Yes Status: Acute Priority: High (2) Methamphetamine use disorder, severe, dependence Current Visit: Yes Status: Acute Priority: High (3) Nicotine dependence Current Visit: Yes Status: Acute Priority: Low (4) Homelessness Current Visit: Yes Status: Acute Priority: Low Hospital Course: Admission HPI: Admission note was completed by manual writer "Patient is a 27-year-old male who is currently homeless living, was just in rehab for 1 day, unemployed, and has 1 kid. Patient presented to the hospital on 01/14 and seen in the ER for suicidal ideations and depression. Patient was a poor historian, claims that he has not been taking medications. Patient was coming from [facility] and was there for 1 day. Patient has a history of homelessness. He apparently had a urine drug scan which is negative, urinalysis is negative. Patient was admitted voluntarily the mental health unit. He was seen today by manual writer and agreeable to speak. He had very poor eye contact, disheveled appearance. He states that he has been feeling depressed and suicidal lately, with a plan to hang himself. States that this has been on and off and increasing in the past 2 months. States that since he has been taken off his medications about 2 months ago he states that his mood is "up and down" and states that he does have anxiety. States that he was taken off his medications by the other psychiatric unit in [facility]. He states that he was there about 2 months ago. He claims that he was only on Seroquel at that time. Claims of the cervical was helping. He claims that he used to use methamphetamine however has been sober since the children January 04. Claims that he still having suicidal thoughts, no intent or plan at this time. Patient denies any homicidal ideations intent or plan. At this time patient denies any auditory or visual hallucinations. Patient denies any flight of ideas racing thoughts and increased in goal directed behavior. Patient states that he used to use methamphetamine however stopped using on 01/04. He claims that he does not drink alcohol, smoke cigarettes regularly." Hospital course: Upon admission to the unit patient was directable and agreeable to commence treatment and signed adult voluntary form . Patient got along well with other patients on the unit and followed unit protocol. Patient was compliant with the medications and denied any side effects throughout hospital course. Patient was started on Cymbalta and increased her dose of 90 mg daily at bedtime for mood/anxiety, Seroquel increased her dose of 100 mg daily at bedtime for insomnia/mood adjunct. Patient spoke of his stressors and engaged in therapy both group and individual. Patient was also seen by medical team for history and physical exam. Throughout the course of the hospitalization patient gradually improved with regards to mood, anxiety, sleep and returned back to their baseline level of functioning. On the day of discharge patient denied any suicidal or homicidal ideations intent or plan denied any auditory or visual hallucinations. Patient endorsed wanting to live for his sobriety and his future. The patient denied any access to guns or weapons. Patient denied any paranoia and did not endorse any delusions. Patient does have a significant history of substance abuse and was counseled on abstaining from all substances including alcohol and marijuana. Patient is still waiting on decision to go back to [place], in the meantime he will either stay with a friend or in a [facility]. Patient was also counseled on the medications and need for regular compliance and was encouraged to follow-up with their outpatient appointment for mental health and also for primary care. Mental status exam: General Appearance: Patient appears to be taller, stated age is alert, pleasant, and cooperative. Patient is in no acute distress and has improved hygiene and grooming Behavior: Patient is calmly seated without any agitated behavior. Speech: Patient's speech is fluent and nonpressured. Mood/Affect: Patient reports their mood is "alright", affect is congruent . Suicidality/Homicidality: Patient denies having any suicidal or homicidal ideation intent or plan. Perceptions: Patient denies any auditory or visual hallucinations. Though content/process: There is no evidence of any delusional thought content and thought process is linear and goal-directed. [place] Memory and concentration: AOX3, grossly intact for the purposes of this session. Can spell "WORLD" backwards correctly. Judgment and insight: improved with guarded prognosis Impression: Major depressive disorder without psychotic features Methamphetamine use disorder severe Nicotine dependence Plan: -Continue with discharge today as patient has improved and stabilized psychiatrically and is not currently an imminent threat to himself and/or others. Patient will remain at chronically elevated risk for harm to self and/or others due to his impulsivity and substance abuse. -Continue medications: Seroquel 100 mg daily at bedtime for mood adjunct/insomnia, Cymbalta 90 mg daily for mood/anxiety. -Patient was counseled on the need for medication compliance and appropriate follow-up at mental health and also primary care for medical issues. Patient verbalized understanding and agreed. -Social work to help coordinate patient's discharge today to either [facility] versus [place] rehab. Social work also to arrange for patients follow up appointments with [facility] for psychiatric care along with follow up with primary care provider. -Patient counseled on abstaining from recreational drugs and marijuana and alcohol. Was informed/educated on the adverse effects on their physical and mental health. Patient verbally agreed and understood. -Patient was instructed to return to the hospital or seek immediate medical care if their psychiatric or medical symptoms do worsen or reoccur. Abnormal Labs 01/16/23 06:49 HDL Cholesterol 32.80 L Laboratory Results WBC 5.3 k/uL (3.8-10.6) 01/16/23 06:49 RBC 5.17 m/uL (4.30-5.90) 01/16/23 06:49 Hgb 15.1 gm/dL (13.0-17.5) 01/16/23 06:49 Hct 46.8 % (39.0-53.0) 01/16/23 06:49 MCV 90.5 fL (80.0-100.0) 01/16/23 06:49 MCH 29.2 pg (25.0-35.0) 01/16/23 06:49 MCHC 32.2 g/dL (31.0-37.0) 01/16/23 06:49 RDW 13.4 % (11.5-15.5) 01/16/23 06:49 Plt Count 198 k/uL (150-450) 01/16/23 06:49 MPV 8.4 01/16/23 06:49 Neutrophils % 60 % 01/16/23 06:49 Lymphocytes % 26 % 01/16/23 06:49 Monocytes % 7 % 01/16/23 06:49 Eosinophils % 4 % 01/16/23 06:49 Basophils % 1 % 01/16/23 06:49 Neutrophils # 3.2 k/uL (1.3-7.7) 01/16/23 06:49 Lymphocytes # 1.4 k/uL (1.0-4.8) 01/16/23 06:49 Monocytes # 0.4 k/uL (0-1.0) 01/16/23 06:49 Eosinophils # 0.2 k/uL (0-0.7) 01/16/23 06:49 Basophils # 0.0 k/uL (0-0.2) 01/16/23 06:49 Sodium 140 mmol/L (137-145) 01/16/23 06:49 Potassium 4.3 mmol/L (3.5-5.1) 01/16/23 06:49 Chloride 105 mmol/L (98-107) 01/16/23 06:49 Carbon Dioxide 29 mmol/L (22-30) 01/16/23 06:49 Anion Gap 6 mmol/L 01/16/23 06:49 BUN 16 mg/dL (9-20) 01/16/23 06:49 Creatinine 0.88 mg/dL (0.66-1.25) 01/16/23 06:49 Est GFR (CKD-EPI)AfAm >90 (>60 ml/min/1.73 sqM) 01/16/23 06:49 Est GFR (CKD-EPI)NonAf >90 (>60 ml/min/1.73 sqM) 01/16/23 06:49 Glucose 86 mg/dL (74-99) 01/16/23 06:[address] Glu mg/dL 100 mg/dL 01/16/23 06:49 Hemoglobin A1c 5.1 % (<=6.0) 01/16/23 06:49 Calcium 8.8 mg/dL (8.4-10.2) 01/16/23 06:49 Total Bilirubin 1.2 mg/dL (0.2-1.3) 01/16/23 06:49 AST 20 U/L (17-59) 01/16/23 06:49 ALT 19 U/L (4-49) 01/16/23 06:49 Alkaline Phosphatase 45 U/L (38-126) 01/16/23 06:49 Total Protein 6.5 g/dL (6.3-8.2) 01/16/23 06:49 Albumin 3.9 g/dL (3.5-5.0) 01/16/23 06:49 Triglycerides 111.00 mg/dL (0.00-149.00) 01/16/23 06:49 Cholesterol 179.00 mg/dL (0.00-200.00) 01/16/23 06:49 LDL Cholesterol, Calc 124.0 mg/dL (0.0-131.0) 01/16/23 06:49 VLDL Cholesterol, Calc 22.20 mg/dL (5.00-40.00) 01/16/23 06:49 HDL Cholesterol 32.80 mg/dL (40.00-60.00) L 01/16/23 06:49 Cholesterol/HDL Ratio 5.46 Ratio 01/16/23 06:49 TSH 4.370 mIU/L (0.465-4.680) 01/16/23 06:49 Urine Color Light Yellow 01/15/23 02:46 Urine Appearance Clear (Clear) 01/15/23 02:46 Urine pH 7.0 (5.0-8.0) 01/15/23 02:46 Ur Specific [place] 1.010 (1.001-1.035) 01/15/23 02:46 Urine Protein Negative (Negative) 01/15/23 02:46 Urine Glucose (UA) Negative (Negative) 01/15/23 02:46 Urine Ketones Negative (Negative) 01/15/23 02:46 Urine Blood Negative (Negative) 01/15/23 02:46 Urine Nitrite Negative (Negative) 01/15/23 02:46 Urine Bilirubin Negative (Negative) 01/15/23 02:46 Urine Urobilinogen <2.0 mg/dL (<2.0) 01/15/23 02:46 Ur Leukocyte Esterase Negative (Negative) 01/15/23 02:46 Urine Opiates Screen Not Detected (NotDetected) 01/15/23 02:46 Ur Oxycodone Screen Not Detected (NotDetected) 01/15/23 02:46 Urine Methadone Screen Not Detected (NotDetected) 01/15/23 02:46 Ur Propoxyphene Screen Not Detected (NotDetected) 01/15/23 02:46 Ur Barbiturates Screen Not Detected (NotDetected) 01/15/23 02:46 U Tricyclic Antidepress Not Detected (NotDetected) 01/15/23 02:46 Ur Phencyclidine Scrn Not Detected (NotDetected) 01/15/23 02:46 Ur Amphetamines Screen Not Detected (NotDetected) 01/15/23 02:46 U Methamphetamines Scrn Not Detected (NotDetected) 01/15/23 02:46 U Benzodiazepines Scrn Not Detected (NotDetected) 01/15/23 02:46 Urine Cocaine Screen Not Detected (NotDetected) 01/15/23 02:46 U Marijuana (THC) Screen Not Detected (NotDetected) 01/15/23 02:46 Influenza Type A (PCR) Not Detected (Not Detectd) 01/14/23 21:45 Influenza Type B (PCR) Not Detected (Not Detectd) 01/14/23 21:45 RSV (PCR) Not Detected (Not Detectd) 01/14/23 21:45 SARS-CoV-2 (PCR) Not Detected (Not Detectd) 01/14/23 21:45 Vital Signs Temp 97.1 F L 01/19/23 06:47 Pulse 58 L 01/19/23 06:47 Resp 16 01/19/23 06:47 BP 117/66 01/19/23 06:47 Pulse Ox 97 01/19/23 06:47 FiO2 Patient Condition at Discharge: Stable Plan - Discharge Summary Discharge Rx Participant: No New Discharge Prescriptions: New Ibuprofen [Motrin] 600 mg PO Q6HR PRN tab PRN Reason: Moderate Pain (Scale 4 To 6) Sennosides-Docusate Sodium [Senokot-S] 1 each PO DAILY 30 Days #30 tab QUEtiapine [SEROquel] 100 mg PO HS 30 Days #30 tab DULoxetine HCL [Cymbalta] 90 mg PO HS 30 Days #90 cap Nicotine 14Mg/24Hr Patch [Habitrol] 1 patch TRANSDERM DAILY 14 Days #14 patch Nicotine Gum (Polacrilex) [Nicorette] 2 mg BUCCAL Q4HR PRN 30 Days #180 pieceofgum PRN Reason: Nicotine Cravings Discharge Medication List DULoxetine HCL [Cymbalta] 90 mg PO HS 30 Days #90 cap 01/20/23 [Rx] Ibuprofen [Motrin] 600 mg PO Q6HR PRN tab 01/20/23 [Rx] Nicotine 14Mg/24Hr Patch [Habitrol] 1 patch TRANSDERM DAILY 14 Days #14 patch 01/20/23 [Rx] Nicotine Gum (Polacrilex) [Nicorette] 2 mg BUCCAL Q4HR PRN 30 Days #180 pieceofgum 01/20/23 [Rx] QUEtiapine [SEROquel] 100 mg PO HS 30 Days #30 tab 01/20/23 [Rx] Sennosides-Docusate Sodium [Senokot-S] 1 each PO DAILY 30 Days #30 tab 01/20/23 [Rx] Patient Instructions/Handouts: How to Stop Smoking (DC), Depression (GEN), Methamphetamine Abuse (ED) Activity/Diet/Wound Care/Special Instructions: Avoid the use of street drugs and alcohol. Take all medications as prescribed. When you are in need of refills on your medications, please contact your medical provider and/or outpatient psychiatrist to have this done. Please go to scheduled outpatient appointments for aftercare treatment. If symptoms return or become worse, call the crisis line at and/or go to the nearest emergency room for evaluation. Discharge Disposition: OTHER INSTITUTION NOT DEFINED
[2023-01-20] MEDS ORDERED: DULoxetine HCL 30 MG CAPSULE.DR PO SCH (21:00)
== END 2023-01-20 13:51 | disposition home or self-care (01) | DRG 754 ==
LOC: EC 21:36 → 3MHU 01-15 04:24
PROVIDERS: ADMIT Psychiatry & Neurology Psychiatry; ATTEND Psychiatry & Neurology Psychiatry
DX: F32.9 Major depressive disorder, single episode, unspecified (principal); R45.851 Suicidal ideations; F15.20 Other stimulant dependence, uncomplicated; Z20.822 Contact with and (suspected) exposure to COVID-19; I10 Essential (primary) hypertension; L40.9 Psoriasis, unspecified; F41.9 Anxiety disorder, unspecified; G47.00 Insomnia, unspecified; F17.210 Nicotine dependence, cigarettes, uncomplicated; Z71.6 Tobacco abuse counseling; Z79.899 Other long term (current) drug therapy; Z59.01 Sheltered homelessness; Z91.51 Personal history of suicidal behavior; Z56.0 Unemployment, unspecified; Z71.51 Drug abuse counseling and surveillance of drug abuser
CPT/HCPCS: 80053; 80061; 80306; 81003; 82075; 83036; 84443; 85025; 87636; 99285